=== PATIENT | female | born 1980 | race Caucasian/White ===

== ENCOUNTER → 2017-10-06 | Outpatient (CLI) | payer BC ==
[~2017-10-06] MED LIST: FLEXERIL10 MG PO; NIFEDIPINE ER30 MG PO; PRENATAL MULTI1 EAC4 PO; TYLENOL EXTRA500 MG PO
== END | disposition home or self-care (01) ==
LOC: NUC 09:20
DX: R07.9 Chest pain, unspecified (principal)
CPT/HCPCS: 78452; 93017; A9500